=== PATIENT | female | born 1950 | race Caucasian/White ===

== ENCOUNTER 2021-07-11 12:54 | Observation (INO) | payer MEDICARE ==
[2021-07-11] VITALS (11 sets, daily range): BP systolic 149–168; BP diastolic 67–84
[~2021-07-11] VITALS: Ht 172.7 cm; Wt 88.0 kg
[2021-07-11] MEDS ORDERED: ASPIRIN 81 MG CHEW TAB PO ONE (13:15)
[2021-07-11 13:39] LABS: BASOPHILS # (AUTO) 0.1 (0.0-0.1); EOSINOPHILS # (AUTO) 0.3 (0.0-0.4); EOSINOPHILS % 4.5 % (0.0-6.0); HEMATOCRIT 38.9 % (34.2-44.1); LYMPHOCYTES # (AUTO) 1.4 (1.0-3.2); LYMPHOCYTES % 20.4 % (18.0-39.1); MEAN CORPUSCULAR HEMOGLOBIN 31.3 pg (28-32); MEAN CORPUSCULAR HGB CONC 33.4 g/dL (31-35); MEAN CORPUSCULAR VOLUME 93.7 fL (81-99); MONOCYTES # (AUTO) 0.4 (0.2-0.8); MONOCYTES % 5.8 % (4.4-11.3); NEUTROPHILS # (AUTO) 4.5 (2.1-6.9); PLATELET COUNT 229 x10e3/uL (140-360); RED BLOOD COUNT 4.15 x10e6/uL (3.6-5.1); RED CELL DISTRIBUTION WIDTH 13.2 % (11.7-14.4)
[2021-07-11] MEDS ORDERED: SODIUM CHLORIDE 0.9% 1000ML 1,000 ML ONE ×2 (13:48→14:09)
[2021-07-11 14:00] LABS: ALBUMIN 4.2 g/dL (3.5-5.0); ALBUMIN/GLOBULIN RATIO 1.4 (0.8-2.0); ANION GAP 11.3 mmol/L (8-16); CALCIUM 9.7 mg/dL (8.4-10.2); CREATININE, SERUM 0.82 mg/dL (0.57-1.11); POTASSIUM 4.3 mmol/L (3.5-5.1)
[2021-07-11] MEDS ORDERED: MIDAZOLAM HCL 2 MG/2 ML VIAL ONE ×2 (14:08→15:05)
[2021-07-11] MEDS ORDERED: FENTANYL CITRATE/PF 100MCG/2 ML INJ ONE (14:08)
[2021-07-11] MEDS ORDERED: IOPAMIDOL 370 MG/ML 200 ML INFUS..BTL INJ ONE (14:09)
[2021-07-11] MEDS ORDERED: LIDOCAINE HCL 2% LOCAL 20 ML VIAL ONE (14:09)
[2021-07-11] MEDS ORDERED: HEPARIN SOD/SOD CHLORIDE 2,000 ML ONE (14:09)
[2021-07-11 14:24] LABS: CREATINE KINASE MB 1.4 ng/mL (0-5.0)
[2021-07-11] MEDS ORDERED: VERAPAMIL HCL 2.5 MG/ML 2 ML VIAL ONE (14:28)
[2021-07-11] MEDS ORDERED: CLOPIDOGREL BISULFATE 75 MG TAB ONE (15:13)
[2021-07-11] MEDS ORDERED: ASPIRIN 325 MG TAB ONE (15:13)
[2021-07-11] MEDS ORDERED: SODIUM CHLORIDE 0.9% 1000ML 1,000 ML IV ONE (18:30)
[2021-07-11] MEDS ORDERED: ATORVASTATIN 40 MG TAB PO SCH (21:00)
[2021-07-11] MEDS: CARVEDILOL 3.125 MG TAB PO SCH (22:04)
[2021-07-11] MEDS ORDERED: LEVOTHYROXINE PO (23:16)
[2021-07-11] MEDS ORDERED: TRAZODONE HCL100 MG PO (23:16)
[2021-07-11] MEDS ORDERED: SERTRALINE PO (23:24)
[2021-07-11] MEDS ORDERED: CLONAZEPAM PO (23:24)
[2021-07-12 00:41] VITALS: BP 176/80
[2021-07-12 05:06] VITALS: BP 147/77
[2021-07-12 05:31] LABS: BASOPHILS # (AUTO) 0.1 (0.0-0.1); BASOPHILS % 0.7 % (0.0-1.0); EOSINOPHILS # (AUTO) 0.5 (0.0-0.4); EOSINOPHILS % 5.5 % (0.0-6.0); HEMATOCRIT 36.8 % (34.2-44.1); HEMOGLOBIN 12.2 g/dL (12.0-16.0); LYMPHOCYTES # (AUTO) 1.9 (1.0-3.2); LYMPHOCYTES % 22.5 % (18.0-39.1); MEAN CORPUSCULAR HEMOGLOBIN 31.1 pg (28-32); MEAN CORPUSCULAR HGB CONC 33.2 g/dL (31-35); MEAN CORPUSCULAR VOLUME 93.9 fL (81-99); MONOCYTES # (AUTO) 0.7 (0.2-0.8); MONOCYTES % 7.9 % (4.4-11.3); NEUTROPHILS # (AUTO) 5.3 (2.1-6.9); PLATELET COUNT 215 x10e3/uL (140-360); RED BLOOD COUNT 3.92 x10e6/uL (3.6-5.1); RED CELL DISTRIBUTION WIDTH 13.2 % (11.7-14.4)
[2021-07-12 05:45] LABS: CALCIUM 9.1 mg/dL (8.4-10.2); CREATININE, SERUM 0.8 mg/dL (0.57-1.11)
[2021-07-12 05:55] LABS: CREATINE KINASE MB 5.6 ng/mL (0-5.0)
[2021-07-12 07:43] VITALS: BP 151/75
[2021-07-12 08:00] VITALS: BP 166/83
[2021-07-12] MEDS ORDERED: ASPIRIN 81 MG ENTERIC COATED PO SCH (09:00)
[2021-07-12] MEDS ORDERED: CLOPIDOGREL BISULFATE 75 MG TAB PO SCH (09:00)
[2021-07-12] MEDS: CARVEDILOL 3.125 MG TAB PO SCH (09:23)
[2021-07-12] MEDS ORDERED: PLAVIX75 MG PO (10:26)
[2021-07-12] MEDS ORDERED: LOPRESSOR25 MG PO (10:26)
[2021-07-12] MEDS ORDERED: ECOTRIN81 MG PO (10:26)
[2021-07-12] MEDS ORDERED: LIPITOR20 MG PO (10:26)
[2021-07-12] MEDS ORDERED: METOPROLOL TARTRATE 50 MG TAB PO ONE (10:30)
[2021-07-12] MEDS ORDERED: CARVEDILOL 3.125 MG TAB PO SCH (17:00)
[2021-07-12] MEDS ORDERED: TRAZODONE HCL 50 MG TAB PO SCH (21:00)
== END 2021-07-12 11:20 | disposition home or self-care (01) ==
LOC: ER 13:05 → INTOOBSV 13:21 → ERHOLD 13:21 → MED/SURG3 17:11
PROVIDERS: ADMIT Internal Medicine; ATTEND Internal Medicine
DX: I25.10 Atherosclerotic heart disease of native coronary artery without angina pectoris (principal); R94.39 Abnormal result of other cardiovascular function study; E03.9 Hypothyroidism, unspecified; F41.9 Anxiety disorder, unspecified; F32.A Depression, unspecified; I10 Essential (primary) hypertension; E78.5 Hyperlipidemia, unspecified; U07.1 COVID-19
CPT/HCPCS: 93458; C9600; 36415; 71045; 80048; 80053; 82550; 82553; 84484; 85025; 92928; 93005; 94799; 99152; 99153; 99284; C1725; C1874; C1887; G0378; J2001; J2250; J3010; J7030; Q9967; U0002